=== PATIENT | male | born 1970 | race Caucasian/White ===

== ENCOUNTER 2021-07-29 15:32 | Emergency (ER) | payer OTHER ==
[~2021-07-29] VITALS: Ht 167 cm; Wt 99.0 kg
--- NOTE | 2021-07-29 15:53 | ED Lower Extremity ---
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 No other injury. Takes no medication other than daily supplements. Onset: just prior to arrival Severity: moderate Pain/Injury Location: right leg Method of Injury: fell Modifying Factors: Worse With Movement (THUAN JOHNSON APRN) Allergies and Home Medications Allergies Coded Allergies: No Known Drug Allergies (Unverified , 07/29/21) Patient Home Medication List Home Medication List Reviewed: Yes (THUAN JOHNSON APRN) Hydrocodone/Acetaminophen (Hydrocodone-Acetamin 5-325 mg) 1 Each Tablet, 1 TAB PO Q4H PRN for PAIN-MODERATE (5-7) Prescribed by: THUAN JOHNSON on 07/29/21 1639 Review of Systems Constitutional: see HPI EENTM: see HPI Respiratory: no symptoms reported Cardiovascular: no symptoms reported Musculoskeletal: see HPI Skin: no symptoms reported Psychiatric/Neurological: No Symptoms Reported (THUAN JOHNSON APRN) Physical Exam Vital Signs Vital Signs - First Documented 07/29/21 16:03 Pulse 58 Resp 18 B/P (MAP) 118/78 (91) Pulse Ox 95 O2 Delivery Room Air (GODWIN PETERSON DO) Vital Signs Capillary Refill : (THUAN JOHNSON APRN) Height, Weight, BMI Height: '" Weight: lbs. oz. kg; BMI Method: General Appearance: WD/WN, no apparent distress Neck: non-tender, full range of motion Respiratory: no respiratory distress, no accessory muscle use Hips: bilateral hip non-tender, bilateral hip normal inspection, bilateral hip normal range of motion Legs: bilateral leg non-tender, bilateral leg normal inspection, bilateral leg normal range of motion; right leg other (Right lower leg swelling just above the ankle. Strong posterior tibial pulse. Normal sensation distally. Swelling is minimal at best.) Knees: bilateral knee non-tender, bilateral knee normal inspection, bilateral knee normal range of motion Ankles: bilateral ankle non-tender, bilateral ankle normal inspection, bilateral ankle normal range of motion Feet: bilateral foot non-tender, bilateral foot normal inspection, bilateral foot normal range of motion Neurologic/Psychiatric: alert, normal mood/affect, oriented x 3 Skin: normal color, warm/dry (THUAN JOHNSON APRN) Progress/Results/Core Measures Results/Orders Lab Results Laboratory Tests Test 07/29/21 15:51 Range/Units White Blood Count 9.6 4.3-11.0 10^3/uL Red Blood Count 4.73 4.30-5.52 10^6/uL Hemoglobin 14.0 13.3-17.7 g/dL Hematocrit 42 40-54 % Mean Corpuscular Volume 88 80-99 fL Mean Corpuscular Hemoglobin 30 25-34 pg Mean Corpuscular Hemoglobin Concent 34 32-36 g/dL Red Cell Distribution Width 12.1 10.0-14.5 % Platelet Count 276 130-400 10^3/uL Mean Platelet Volume 10.9 9.0-12.2 fL Immature Granulocyte % (Auto) 0 % Neutrophils (%) (Auto) 61 42-75 % Lymphocytes (%) (Auto) 28 12-44 % Monocytes (%) (Auto) 8 0-12 % Eosinophils (%) (Auto) 2 0-10 % Basophils (%) (Auto) 1 0-10 % Neutrophils # (Auto) 5.9 1.8-7.8 10^3/uL Lymphocytes # (Auto) 2.7 1.0-4.0 10^3/uL Monocytes # (Auto) 0.7 0.0-1.0 10^3/uL Eosinophils # (Auto) 0.2 0.0-0.3 10^3/uL Basophils # (Auto) 0.1 0.0-0.1 10^3/uL Immature Granulocyte # (Auto) 0.0 0.0-0.1 10^3/uL Prothrombin Time 18.1 H 12.2-14.7 SEC INR Comment 1.5 H 0.8-1.4 Sodium Level 143 135-145 MMOL/L Potassium Level 4.0 3.6-5.0 MMOL/L Chloride Level 110 H 98-107 MMOL/L Carbon Dioxide Level 25 21-32 MMOL/L Anion Gap 8 5-14 MMOL/L Blood Urea Nitrogen 21 H 7-18 MG/DL Creatinine 1.04 0.60-1.30 MG/DL Estimat Glomerular Filtration Rate 75 BUN/Creatinine Ratio 20 Glucose Level 114 H 70-105 MG/DL Calcium Level 9.2 8.5-10.1 MG/DL Corrected Calcium 9.0 8.5-10.1 MG/DL Total Bilirubin 0.5 0.1-1.0 MG/DL Aspartate Amino Transf (AST/SGOT) 34 5-34 U/L Alanine Aminotransferase (ALT/SGPT) 48 0-55 U/L Alkaline Phosphatase 59 40-136 U/L Total Protein 6.5 6.4-8.2 GM/DL Albumin 4.2 3.2-4.5 GM/DL (GODWIN PETERSON ) Vital Signs/I&O 07/29/21 07/29/21 16:03 17:25 Pulse 58 79 Resp 18 18 B/P (MAP) 118/78 (91) 127/77 Pulse Ox 95 94 O2 Delivery Room Air Room Air (GODWIN PETERSON ) Departure Communication (Admissions) SplintSpoke with Dr. Alves, since this is a nondisplaced fracture in the ankle mortise is not widened this can be treated with splinting and follow-up outpatient. Should be able to manage this nonoperatively. NAME: DIMAS SHARMA [facility] REC#: [id number] PT STATUS: REG ER : 1970 PHYSICIAN: THUAN JOHNSON APRN ADMIT DATE: 07/29/21/ER Draft Date of Exam:07/29/21 TIBIA/FIBULA, RIGHT, 2 VIEWS HISTORY: Trauma to the right lower leg, with pain. TECHNIQUE: Two views of the right tibia/fibula. COMPARISON: None. FINDINGS: There is an oblique mildly anteriorly displaced fracture of the proximal right fibular diaphysis. There is a nondisplaced fracture at the medial malleolus and a nondisplaced fracture of the posterior malleolus of the distal tibia. Alignment otherwise appears normal. There is soft tissue swelling about the right ankle. IMPRESSION: 1. Medial and posterior malleolus fractures of the distal right tibia. Consider dedicated right ankle radiographs. 2. Mildly displaced oblique fracture of the proximal right fibula. Dictated on workstation # [id number] Dict: 07/29/21 1616 Trans: 07/29/21 1621 [id number] Interpreted by: PATSY ALVAREZ MD Electronically signed by: (THUAN JOHNSON APRN) Impression Primary Impression: Ankle fracture, bimalleolar, closed Disposition: 01 HOME, SELF-CARE Condition: Stable Departure-Patient Inst. Decision time for Depature: 16:37 (THUAN JOHNSON APRN) Referrals: CURTIS MEDINA MD, TERRY D MD ZAFUTA, MICHAEL P MD Patient Instructions: Ankle Fracture Add. Discharge Instructions: Keep the splint on clean and dry at all times. Do not put any weight on the right leg. As such she will need to use the crutches. Pain medication as directed. Keep the right leg elevated as much as possible. Call an orthopedic surgeon of your choosing tomorrow to make an appointment to be seen sometime next week. Scripts Hydrocodone/Acetaminophen (Hydrocodone-Acetamin 5-325 mg) 1 Each Tablet 1 TAB PO Q4H PRN for PAIN-MODERATE (5-7), #20 TAB Prov: THUAN JOHNSON APRN 07/29/21 ATTENDING PHYSICIAN NOTE: I WAS PHYSICALLY PRESENT ER PHYSICIAN WHEN THIS PATIENT WAS IN ER, BUT I WAS NOT INVOLVED IN DECISION MAKING OR ANY CARE OF THIS PATIENT. (GODWIN PETERSON DO) THUAN JOHNSON APRN Jul 29, 2021 15:53 GODWIN PETERSON DO Jul 30, 2021 06:33
[2021-07-29] MEDS: morphine INJ 10 MG/ML 1ML (SYR OR VIAL) IVP STA (15:58)
[2021-07-29 16:08] LABS: ALBUMIN 4.2 GM/DL (3.2-4.5)
[2021-07-29 16:10] LABS: CALCIUM 9.2 MG/DL (8.5-10.1)
[2021-07-29 16:11] LABS: TOTAL PROTEIN 6.5 GM/DL (6.4-8.2)
[2021-07-29 16:13] LABS: BILIRUBIN,TOTAL 0.5 MG/DL (0.1-1.0)
[2021-07-29 16:15] LABS: CREATININE SERUM 1.04 MG/DL (0.60-1.30)
[2021-07-29 16:16] LABS: BASOPHILS # (AUTO) 0.1 10^3/uL (0.0-0.1); BASOPHILS % (AUTO) 1 % (0-10); EOSINOPHILS # (AUTO) 0.2 10^3/uL (0.0-0.3); EOSINOPHILS % (AUTO) 2 % (0-10); HEMATOCRIT 42 % (40-54); LYMPHOCYTES # (AUTO) 2.7 10^3/uL (1.0-4.0); LYMPHOCYTES % (AUTO) 28 % (12-44); MEAN CORPUSCULAR HEMOGLOBIN 30 pg (25-34); MEAN CORPUSCULAR HGB CONC 34 g/dL (32-36); MEAN CORPUSCULAR VOLUME 88 fL (80-99); MEAN PLATELET VOLUME 10.9 fL (9.0-12.2); MONOCYTES # (AUTO) 0.7 10^3/uL (0.0-1.0); MONOCYTES % (AUTO) 8 % (0-12); NEUTROPHILS # (AUTO) 5.9 10^3/uL (1.8-7.8); NEUTROPHILS % (AUTO) 61 % (42-75); PLATELET COUNT 276 10^3/uL (130-400); WHITE BLOOD COUNT 9.6 10^3/uL (4.3-11.0)
--- NOTE | 2021-07-29 16:21 | Diagnostic Imaging Report ---
HISTORY: Trauma to the right leg, right leg pain. TECHNIQUE: Two views of the right femur. COMPARISON: None. FINDINGS: No acute fracture or dislocation is seen in the right femur. Alignment is normal. Joint spaces are preserved. IMPRESSION: 1. No acute osseous abnormality is seen in the right femur. Dictated by: Dictated on workstation # [id number]
--- NOTE | 2021-07-29 16:21 | Diagnostic Imaging Report ---
HISTORY: Trauma to the right lower leg, with pain. TECHNIQUE: Two views of the right tibia/fibula. COMPARISON: None. FINDINGS: There is an oblique mildly anteriorly displaced fracture of the proximal right fibular diaphysis. There is a nondisplaced fracture at the medial malleolus and a nondisplaced fracture of the posterior malleolus of the distal tibia. Alignment otherwise appears normal. There is soft tissue swelling about the right ankle. IMPRESSION: 1. Medial and posterior malleolus fractures of the distal right tibia. Consider dedicated right ankle radiographs. 2. Mildly displaced oblique fracture of the proximal right fibula. Dictated by: Dictated on workstation # [id number]
[2021-07-29 16:32] LABS: INR 1.5 (0.8-1.4); PROTHROMBIN TIME PATIENT 18.1 SEC (12.2-14.7)
[2021-07-29] MEDS ORDERED: ACHD5005 PO (16:38)
--- NOTE | 2021-07-29 16:47 | Diagnostic Imaging Report ---
HISTORY: Right ankle pain after fall. TECHNIQUE: Three views of the right ankle. COMPARISON: None. FINDINGS: There is a minimally displaced oblique fracture of the medial malleolus. There is a nondisplaced fracture of the posterior malleolus. The ankle mortise appears to be symmetric. There is mild soft tissue swelling about the right ankle. No significant joint effusion is seen. There is mild calcaneal enthesopathy. IMPRESSION: Medial malleolus and posterior malleolus fractures of the right ankle. Proximal right fibula is seen on a separate radiograph. Dictated by: Dictated on workstation # [id number]
[2021-07-29 17:25] VITALS: BP 127/77
== END 2021-07-29 17:38 | disposition home or self-care (01) ==
LOC: ER 15:36
DX: S82.841A Displaced bimalleolar fracture of right lower leg, initial encounter for closed fracture (principal); W17.89XA Other fall from one level to another, initial encounter
CPT/HCPCS: 29515; 36415; 73552; 73590; 73610; 80053; 85025; 85610